=== PATIENT | female | born 1950 | race Caucasian/White ===

== ENCOUNTER → 2016-10-04 | Outpatient (CLI) | payer MEDICARE ==
--- NOTE | 2016-10-04 12:42 | BD ---
EXAMINATION TYPE: MG DEXA axial skeleton. DATE OF EXAM: 10/04/2016 8:15 AM COMPARISON: YES CLINICAL HISTORY: POST MENOPAUSAL Height: 5'4 Weight: 191 FRAX RISK QUESTIONS: Alcohol (3 or more units per day): no Family History (Parent hip fracture): yes Glucocorticoids (More than 3mos): no (Ex: prednisone, prednisolone, methylprednisolone, dexamethasone, and hydrocortisone). History of Fracture in Adulthood: no Secondary Osteoporosis: 1. Type 1 Diabetes: no 2. Hyperthyroidism: no 3. Menopause before 45: no 4. Malnutrition: no 5. Chronic liver disease: no Rheumatoid Arthritis: no Current Tobacco Use: no RISK FACTORS HISTORY OF: Diet low in dairy products/other sources of calcium: Postmenopausal woman: Yes MEDICATIONS: Additional Medications: cholesterol, blood pressure, Additional History: post menopausal EXAM MEASUREMENTS: Bone mineral densitometry was performed using the Xdynia System. Bone mineral density as measured about the Lumbar spine is: ----- L1-L4(G/cm2): 1.690 T Score Values are as follows: ----- L2: 3.3 ----- L3: 4.3 ----- L4: 7.0 ----- L1-L4: 4.3 Bone mineral density has: Increased 16.7% since study of: 11/28/2006 Bone mineral density about the R hip (g/cm2): 1.109 Bone mineral density about the L hip (g/cm2): 1.025 T Score values are as follows: -----R Neck: 0.5 -----L Neck: -0.1 -----R Intertrochanter: 0.7 -----L Intertrochanter: 0.7 Bone mineral density has: Decreased -2.4% since study of: 11/28/2006 IMPRESSION: Normal (Values between +1 and -1 indicate normal bone mass) NOTE: T-SCORE=SD OF THE YOUNG ADULT MEAN.
--- NOTE | 2016-10-05 11:50 | MM ---
Reason for exam: screening (asymptomatic). Last mammogram was performed 1 year and 4 months ago. History: Patient is postmenopausal. Family history of breast cancer in 2 aunts and breast cancer in mother. Reductions of both breasts, 1992. Benign core biopsy of the left breast. Took hormonal contraceptives for 6 years beginning at age 21. Physical Findings: A clinical breast exam by your physician is recommended on an annual basis and results should be correlated with mammographic findings. MG 3D Screening Mammo W/Cad Bilateral CC and MLO view(s) were taken. Prior study comparison: May 20, 2015, bilateral MG screening mammo w CAD. January 24, 2014, bilateral digital screening mammo w/CAD. The breast tissue is heterogeneously dense. This may lower the sensitivity of mammography. Benign calcifications. There is chronic nodularity in the left breast. No significant changes when compared with prior studies. ASSESSMENT: Benign, BI-RAD 2 RECOMMENDATION: Routine screening mammogram of both breasts in 1 year.
== END | disposition home or self-care (01) ==
LOC: RADMAMWWP 07:31
PROVIDERS: ATTEND Internal Medicine
DX: Z12.31 Encounter for screening mammogram for malignant neoplasm of breast (principal); N95.1 Menopausal and female climacteric states
CPT/HCPCS: 77080; 77063; G0202

== ENCOUNTER → 2018-01-24 | Outpatient (CLI) | payer MEDICARE ==
--- NOTE | 2018-01-25 10:28 | MM ---
Reason for exam: screening (asymptomatic). Last mammogram was performed 1 year and 4 months ago. History: Patient is postmenopausal. Family history of breast cancer in 2 aunts and breast cancer in mother. Reductions of both breasts, 1993. Benign core biopsy of the left breast. Took hormonal contraceptives for 6 years beginning at age 21. MG 3D Screening Mammo W/Cad Bilateral CC, MLO, and XCCL view(s) were taken. Prior study comparison: October 04, 2016, bilateral MG 3d screening mammo w/cad. May 20, 2015, bilateral MG screening mammo w CAD. The breast tissue is heterogeneously dense. This may lower the sensitivity of mammography. There is a 3mm mass in the upper inner quadrant of the right breast at middle depth possibly present on recent exams but with increasing calcifications. There is a group of calcifications at far posterior depth in the lateral right breast on XCCL view only. No suspicious abnormality in the left breast. ASSESSMENT: Incomplete: need additional imaging evaluation, BI-RAD 0 RECOMMENDATION: Special view mammogram of the right breast. If lesion persists on supplemental views, image directed ultrasound is recommended. [facility] will attempt to contact patient to return for supplemental views and ultrasound if indicated.
== END ==
LOC: RADMAMWWP 12:40
PROVIDERS: ATTEND Internal Medicine
DX: Z12.31 Encounter for screening mammogram for malignant neoplasm of breast (principal)
CPT/HCPCS: 77063; 77067

== ENCOUNTER → 2018-01-26 | Outpatient (CLI) | payer MEDICARE ==
--- NOTE | 2018-01-26 12:11 | MM ---
Reason for exam: additional evaluation requested from abnormal screening. Last mammogram was performed less than 1 month ago. History: Patient is postmenopausal. Family history of breast cancer in 2 aunts and breast cancer in mother. Reductions of both breasts, 1993. Benign core biopsy of the left breast. Took hormonal contraceptives for 6 years beginning at age 21. Physical Findings: Nurse did not find any significant physical abnormalities on exam. MG 3D Work Up W/Cad RT CC and MLO view(s) were taken of the right breast. Prior study comparison: January 24, 2018, bilateral MG 3d screening mammo w/cad. October 04, 2016, bilateral MG 3d screening mammo w/cad. Finding: There are typically benign round calcifications in the right breast. There is a chronic nodularity in the right breast. There is no discrete abnormality. These results were verbally communicated with the patient and result sheet given to the patient on 01/26/18. ASSESSMENT: Benign, BI-RAD 2 RECOMMENDATION: Return to routine screening mammogram schedule for both breasts.
== END | disposition home or self-care (01) ==
LOC: RADMAMWWP 11:01
PROVIDERS: ATTEND Internal Medicine
DX: R92.8 Other abnormal and inconclusive findings on diagnostic imaging of breast (principal)
CPT/HCPCS: 77065; G0279

== ENCOUNTER → 2018-07-30 | Outpatient (CLI) | payer MEDICARE ==
--- NOTE | 2018-07-30 15:11 | XR ---
EXAMINATION TYPE: XR chest 2V DATE OF EXAM: 07/30/2018 COMPARISON: NONE HISTORY: Cough TECHNIQUE: Frontal and lateral views of the chest are obtained. FINDINGS: There is no focal air space opacity, pleural effusion, or pneumothorax seen. The cardiac silhouette size is within normal limits. Suspect some bronchial wall thickening. Suspect a spinal cur vature, patient is rotated. There is eventration of the hemidiaphragms. The osseous structures are in tact. IMPRESSION: Correlate for bronchitis, reactive airways disease, follow-up as indicated
== END | disposition home or self-care (01) ==
LOC: RADXRMAIN 12:13
PROVIDERS: ATTEND Internal Medicine
DX: R05 Cough (principal)
CPT/HCPCS: 71046

== ENCOUNTER → 2019-02-01 | Outpatient (CLI) | payer MEDICARE ==
--- NOTE | 2019-02-04 08:25 | MM ---
Reason for exam: screening (asymptomatic). Last mammogram was performed 1 year ago. History: Patient is postmenopausal. Family history of breast cancer in 2 aunts and breast cancer in mother. Reductions of both breasts, 1993. Benign core biopsy of the left breast. Took hormonal contraceptives for 6 years beginning at age 21. Physical Findings: A clinical breast exam by your physician is recommended on an annual basis and results should be correlated with mammographic findings. MG 3D Screening Mammo W/Cad Bilateral CC and MLO view(s) were taken. Prior study comparison: January 26, 2018, right breast MG 3d work up w/cad RT. January 24, 2018, bilateral MG 3d screening mammo w/cad. The breast tissue is heterogeneously dense. This may lower the sensitivity of mammography. Finding #1: There is a new 12 mm indistinct oval mass in the lower inner quadrant, posterior middle position of the left breast. Finding #2: There are typically benign dystrophic, round, diffuse/scattered and grouped calcifications in both breasts. ASSESSMENT: Incomplete: need additional imaging evaluation, BI-RAD 0 RECOMMENDATION: Ultrasound of the left breast. [facility] will attempt to contact patient to return for ultrasound.
== END ==
LOC: RADMAMWWP 09:13
PROVIDERS: ATTEND Internal Medicine
DX: Z12.31 Encounter for screening mammogram for malignant neoplasm of breast (principal)
CPT/HCPCS: 77063; 77067

== ENCOUNTER → 2019-02-13 | Outpatient (CLI) | payer MEDICARE ==
--- NOTE | 2019-02-13 09:57 | USB ---
Reason for exam: additional evaluation requested from abnormal screening. History: Patient is postmenopausal. Family history of breast cancer in 2 aunts and breast cancer in mother. Reductions of both breasts, 1992. Benign core biopsy of the left breast. Took hormonal contraceptives for 6 years beginning at age 21. Physical Findings: Nurse did not find any significant physical abnormalities on exam. US Breast Workup Limited LT Left limited breast ultrasound including focal area of concern, retroareolar and axilla demonstrates a 1.0 x 0.9 x 0.7cm irregular, solid, hypoechoic lesion at 6 o'clock and a 0.5 x 0.6 x 0.2cm irregular, solid, hypoechoic lesion at 6 o'clock. Suspicious, biopsy recommended, correlate with post biopsy images to assess for concordance with new left focal asymmetry. These results were verbally communicated with the patient and result sheet given to the patient on 02/13/19. ASSESSMENT: Suspicious, BI-RAD 4 RECOMMENDATION: Ultrasound core biopsy of the left breast. (x 2) Called Dr. Castro with mammographic findings and has scheduled an appointment for the patient for 03/21/19 at 10:[address] Waite. Biopsy scheduled for 02/27/19 at 12:20. PRELIMINARY REPORT CALLED AND FAXED TO DR. WAITE ON 02/13/19.
== END | disposition home or self-care (01) ==
LOC: RADUSWWP 07:54
PROVIDERS: ATTEND Internal Medicine
DX: R92.8 Other abnormal and inconclusive findings on diagnostic imaging of breast (principal)

== ENCOUNTER → 2019-02-27 | Day surgery (SDC) | payer MEDICARE ==
[2019-02-27 11:46] VITALS: TEMP 98.4; BMI 30.9
[2019-02-27 13:34] VITALS: BP 142/80; PULSE 60
--- NOTE | 2019-02-27 14:30 | USB ---
EXAMINATION TYPE: US biopsy breast VAD LT DATE OF EXAM: 02/27/2019 CLINICAL HISTORY: R92.8 Abnormal Mammogram. TECHNIQUE: Ultrasound guided core biopsy of left breast. COMPARISON: Ultrasound left breast 02/13/2018 FINDINGS: The procedure of ultrasound guided core biopsy was explained to the patient. Benefits, alternatives, and risks were discussed. An informed consent was then obtained. The patient was placed in supine positioning for imaging and for the procedure. The overlying skin was prepped and draped in usual sterile fashion. Lidocaine was used as anesthetic into the skin and subcutaneous tissue up to area of concern in the left breast at the approximate 6:00 position. Under ultrasound guidance, a 12-gauge vacuum assisted biopsy gun device was used to obtain 5 core samples. Following this, a biopsy clip was left in lesion. Postprocedure mammogram was performed documenting the clip in place and correlating with the mammographic abnormality at the lower inner left breast The patient tolerated the procedure well without any immediate complication. The patient was kept in the radiology department for short stay after the procedure and then discharged home in stable condition. Additional abnormality within the left breast at the approximate 6:00 position is at the site of patient's surgical scar from breast reduction was felt likely to be benign. No biopsy performed at this lesion time. IMPRESSION: Successful, uncomplicated ultrasound guided core biopsy of area of concern in the left breast 6:00, full pathology results to follow. Additional smaller lesion at 6:00 left breast, no biopsy performed at this time. Short interval follow-up breast ultrasound recommended in 6 months. Pathology Results: Malignant LEFT BREAST, CORE BIOPSY: Invasive moderately differentiated ductal carcinoma. See Surgical Pathology Cancer Case Summary and Comment. Recommendation Surgical consult of the left breast. Biopsy is recommended for the second smaller mass also at 6 o'clock on the left. [facility]
--- NOTE | 2019-02-28 08:16 | MM ---
Reason for exam: additional evaluation requested from abnormal screening. Last mammogram was performed 1 month ago. History: Patient is postmenopausal. Family history of breast cancer in 2 aunts and breast cancer in mother. Reductions of both breasts, 1993. Benign core biopsy of the left breast. Took hormonal contraceptives for 6 years beginning at age 21. MG Diagnostic Mammo LT Wo CAD CC and LM view(s) were taken of the left breast. Prior study comparison: February 01, 2019, bilateral MG 3d screening mammo w/cad. January 26, 2018, right breast MG 3d work up w/cad RT. ASSESSMENT: Post procedure mammogram for marker placement RECOMMENDATION: Surgical consultation of the left breast. Biopsy is recommended for the second smaller mass also at 6 o'clock on the left.
== END | disposition home or self-care (01) ==
LOC: RADUSWWP 11:14
PROVIDERS: ATTEND Surgery
DX: C50.912 Malignant neoplasm of unspecified site of left female breast (principal); Z78.0 Asymptomatic menopausal state; Z80.3 Family history of malignant neoplasm of breast
CPT/HCPCS: 88305; 88342; 88341; 77065; 19083; A4648

== ENCOUNTER → 2019-03-13 | Outpatient (CLI) | payer MEDICARE ==
--- NOTE | 2019-03-14 08:41 | BMR ---
EXAMINATION TYPE: MR breast BILAT wo/w con DATE OF EXAM: 03/13/2019 COMPARISON: Prior 3-D bilateral breast mammogram February 01, 2019 BI-RADS 0. Left breast ultrasound January BI-RADS 4. HISTORY: Left breast cancer on recent biopsy February 27, 2019. History of bilateral breast reduction surg chris. Pathology is invasive moderately differentiated ductal carcinoma. CONTRAST: Multiplanar, multisequence images of the breasts were acquired utilizing 7.5 mL intravenous Gadavist gadolinium contrast. TECHNIQUE: A series of fat and water weighted images in the long and short axis views of both breasts are obtained in conjunction with dynamic contrast MRI with subtraction technique. Three-dimensional and additional postprocessing imaging is created on independent workstation and reviewed during offi cial interpretation of this study. FINDINGS: Heterogeneously dense fibroglandular tissue is redemonstrated throughout both breasts. Ther e are a few scattered simple-appearing thin-walled cysts identified bilaterally. Dynamic postcontrast images show moderate glanular enhancement with asymmetric left-sided subareolar increased glanular e nhancement versus opposite right side. Some areas of slight nodular enhancement are present bilateral ly. No suspicious fat-containing masses are present bilaterally. Dynamic postcontrast images show no suspicious intramammary adenopathy. With regard to the right breast there is no suspicious skin thickening. No suspicious masses or patho logic enhancement is seen. Benign-appearing right axillary lymph nodes are noted. Chest wall is intac t. With regard to the left breast there is significant blooming artifact from biopsy clip in the lower i nner quadrant middle depth. At this level there is some residual curvilinear enhancement along the an terior and deeper central aspect of the clip measuring roughly 9 x 2 mm with rapid uptake and washout . Remainder of left breast shows no additional areas of suspicious enhancement without second site to correspond to the small area of concern on recent ultrasound labeled 6:00 position BC zone. Normal-a ppearing left axillary lymph nodes are seen. The chest wall is intact. Small hiatal hernia is incidentally noted. IMPRESSION: Some residual curvilinear enhancement at site of biopsy-proven carcinoma left breast. No MRI evidence for additional malignancy in the left or right breast. BI-RADS 2 benign findings right breast. BI-RADS 6 biopsy-proven carcinoma left breast. Recommendation: Despite negative MRI would advise ultrasound guided sampling of second smaller area o f concern left breast prior to possible surgical excision of the biopsy-proven carcinoma.
== END | disposition home or self-care (01) ==
LOC: RADMRIMAIN 20:22
PROVIDERS: ATTEND Surgery
DX: C50.912 Malignant neoplasm of unspecified site of left female breast (principal)
CPT/HCPCS: C8937; C8908; A9585; 77049

== ENCOUNTER → 2019-04-08 | Day surgery (SDC) | payer MEDICARE ==
[2019-04-08 07:21] VITALS: RESP 12
[2019-04-08 08:44] VITALS: BP 143/90; PULSE 57; TEMP 98.1
--- NOTE | 2019-04-08 13:00 | USB ---
EXAMINATION TYPE: US biopsy breast VAD LT, Postbiopsy MG diagnostic mammo LT wo CAD DATE OF EXAM: 04/08/2019 CLINICAL HISTORY: 68 year-old female with biopsy-proven C50.912 Breast Ca, Z85.3 history of cancer. Second suspicious area in the same breast for which the patient is referred for biopsy. TECHNIQUE: Ultrasound guided core biopsy of the left breast. COMPARISON: MRI 03/13/2019 and 02/13/2019 FINDINGS: The procedure of ultrasound guided core biopsy was explained to the patient. Benefits, alternatives, and risks were discussed. An informed consent was then obtained. The 5 mm irregular area at the 6:00 position, zone B/C was identified and targeted for biopsy. The patient was placed in supine positioning for imaging and for the procedure. The overlying skin was prepped and draped in usual sterile fashion. Lidocaine was used as anesthetic into the skin and subcutaneous tissue up to area of concern in the 6:00 left breast. Under ultrasound guidance, a 13-gauge vacuum-assisted mammotome Elite biopsy gun was used to obtain 3 core samples. Following this, a wing clip was left in lesion. The patient tolerated the procedure well without any immediate complication. The patient was kept in the radiology department for short stay after the procedure and then discharged home in stable condition. Postbiopsy mammogram shows wing clip deposited in the lower inner quadrant in relative proximity to the coil clip which corresponds to the site of biopsy- proven carcinoma. IMPRESSION: Successful, uncomplicated ultrasound guided core biopsy of a second area of concern in the 6:00 zone B/C position of the left breast. Biopsy proven left breast cancer at 6:00 zone A. Both clips located mammographically in the lower inner quadrant. Full pathology results to follow. 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 See Surgical Pathology Cancer Case Summary. Recommendation Surgical consult of the left breast. [facility]
== END ==
LOC: RADUSWWP 06:59
PROVIDERS: ATTEND Surgery
DX: Z85.3 Personal history of malignant neoplasm of breast (principal); C50.912 Malignant neoplasm of unspecified site of left female breast
CPT/HCPCS: 88305; 77065; 19083; A4648; J2001

== ENCOUNTER → 2019-05-23 | Day surgery (SDC) | payer MEDICARE ==
[2019-05-17 10:19] VITALS: BMI 30.9
[~2019-05-23] MED LIST: ALPRAZolam 0.25 MG TAB PO ONE; BUPIVACAIN-EPI 0.25%-1:200,000 30 ML VIAL SQ ONE; DEXAMETHASONE SOD PHOSPHATE 10 MG/ML 1 ML VIAL IV ONE; GLYCOPYRROLATE 0.2 MG/ML 2 ML VIAL ONE; HEPARIN SODIUM,PORCINE 5,000 UNIT/ML 1 ML VIAL SQ ONE; HYDROcodone/APAP 5-325MG 1 EACH TAB PO ONE; HYDROcodone/APAP 5-325MG 1 EACH TAB PO PRN; HYDROmorphone 0.5 MG/0.5 ML SYRINGE IVP PRN; LACTATED RINGERS 1,000 ML IV SCH; LIDOCAINE 1% 20 ML VIAL (10MG/ML) FOR IV START SQ ONE; LIDOCAINE 1% INJ 10MG/ML (20 ML MDV) ONE; LIDOCAINE 1% INJ 10MG/ML (20 ML MDV) SQ ONE; METHYLENE BLUE 50 MG/10 ML AMPUL INJ ONE; METHYLENE BLUE 50 MG/10 ML AMPUL MISCELLANE ONE; MIDAZOLAM 2 MG/2 ML VIAL IV PRN; MIDAZOLAM 2 MG/2 ML VIAL ONE; NALOXONE 0.4 MG/ML 1 ML VIAL IV PRN; ONDANSETRON 4 MG/2 ML VIAL IVP ONE; PROPOFOL 10 MG/ML 20 ML VIAL IV ONE; Pre Op ABX Message 1 EACH MISC MISCELLANE ONE; SUCCINYLCHOLINE CHLORIDE 100 MG/5 ML SYR IV ONE; ePHEDrine SULFATE/0.9% NACL/PF 50 MG/5 ML SYRINGE IV ONE; fentaNYL (PF) 50 MCG/ML 2 ML AMP ONE
--- NOTE | 2019-05-23 10:08 | P.GSHP ---
History of Present Illness H&P Date: 05/23/19 Chief Complaint: Left breast cancer 68-year-old female seen in early March. Patient had mammogram in January showing a 12 mm mass posterior left breast. Ultrasound showed 2 separate lesions around 6:00 location. Biopsy of the larger lesion revealed grade 2 invasive ductal cancer. ER/TX positive HER-2/naomy negative. Family history of breast cancer in her mother and 2 aunts. History of previous bilateral breast reduction 1992. Patient without symptoms. After initial evaluation was scheduled for breast MRI and also genetic testing. Breast MRI showed no additional suspicious abnormalities however biopsy of the second lesion seen on ultrasound was advised. Patient underwent biopsy left breast second lesion and this also showed invasive ductal cancer identical to the previously biopsied patient's case was presented at tumor board. Her genetic testing was negative. Her films were reviewed with radiology and it was felt that the 2 areas of biopsy proven malignancy were less than 2 cm from one another. Breast conservation remain an option for that reason. She and I discussed mastectomy with or without reconstruction as well as uncle plastic surgery on the contralateral and ipsilateral side as options. She remained interested in lumpectomy sentinel lymph node biopsy left breast. Past Medical History Past Medical History: Asthma, Cancer, Hyperlipidemia, Hypertension Additional Past Medical History / Comment(s): STATES LIGHT ASTHMA (NO RX), GOUT, NEW DIAGNOSIS BREAST CANCER. History of Any Multi-Drug Resistant Organisms: None Reported Past Surgical History: Breast Surgery Additional Past Surgical History / Comment(s): bilat breast reduction. Ovarian cyst removal, Breast Bx. Past Anesthesia/Blood Transfusion Reactions: Motion Sickness, Postoperative Nausea & Vomiting (PONV) Past Psychological History: No Psychological Hx Reported Smoking Status: Former smoker Past Alcohol Use History: Rare Additional Past Alcohol Use History / Comment(s): QUIT SMOKING AGE 31 (1980), STARTED SMOKING AGE 22 . SMOKED < 1 PPD Past Drug Use History: None Reported - Past Family History Mother Family Medical History: Cancer Additional Family Medical History / Comment(s): pt's mother was dx with breast cancer twice (first time at age 60, second at age 80) at age 95 from stroke complications. Pt has 2 maternal aunts that were also dx with breast cancer. States cousins with breast cancer-4? Medications and Allergies Home Medications Medication Instructions Recorded Confirmed Type Aspirin [Adult Low Dose Aspirin EC] 81 mg PO HS 02/18/19 05/17/19 History Cholecalciferol (Vitamin D3) 2,000 unit PO HS 02/18/19 05/17/19 History [Vitamin D3] Ezetimibe [Zetia] 10 mg PO HS 02/18/19 05/17/19 History Pravastatin Sodium [Pravachol] 10 mg PO HS 05/17/19 05/17/19 History amLODIPine BESYLATE [Norvasc] 5 mg PO HS 05/17/19 05/17/19 History Allergies Allergy/AdvReac Type Severity Reaction Status Date / Time MUSCLE RELAXANT AdvReac Unknown RASH ON Uncoded 05/17/19 10:04 FACE- UNKNOWN DRUG NAME Surgical - Exam Physical exam: General: Well-developed, well-nourished HEENT: Normocephalic, sclerae nonicteric Left breast: No masses, no adenopathy, previous scars noted Right breast: No masses, no adenopathy, previous scars noted Abdomen: Nontender, nondistended Extremities: No edema Neuro: Alert and oriented Assessment and Plan (1) Breast cancer, left breast Narrative/Plan: 68-year-old female with left breast cancer. 2 separate biopsy proven suspicious areas at 6:00. Again options of mastectomy with or without reconstruction and lumpectomy with anticipated adjuvant radiation therapy reviewed. She remains interested in breast conservation. Will proceed today with left breast gavi mpectomy with sentinel lymph node biopsy and injection with wire localization. Risks of bleeding, infection, nerve injury, possible need for additional surgery, seroma, numbness, scarring, lymphedema, recurrence reviewed. She understands and wished to proceed. Status: Acute Code(s): C50.912 - MALIGNANT NEOPLASM OF UNSPECIFIED SITE OF LEFT FEMALE BREAST SNOMED Code(s): 089723171
--- NOTE | 2019-05-23 16:06 | NM ---
EXAMINATION TYPE: NM sentinel node injection DATE OF EXAM: 05/23/2019 COMPARISON: NONE INDICATION: Abnormal mammogram. Informed consent was obtained. A timeout was performed. The area around the left nipple was cleansed with alcohol. A total of 490 microcuries of lymphocele w as injected. The patient tolerated the procedure very well. IMPRESSIONS: 1.. Successful injection for sentinel node evaluation.
[2019-05-23 16:09] VITALS: TEMP 97.7
--- NOTE | 2019-05-23 16:33 | P.OP ---
Date of Procedure: 05/23/19 Procedure(s) Performed: REOPERATIVE DIAGNOSIS: Left breast cancer POSTOPERATIVE DIAGNOSIS: Same PROCEDURE: Left Breast wire localization lumpectomy with sentinel lymph node biopsy SURGEON: Ravindra EBL: Minimal ANESTHESIA: General COMPLICATIONS: None OPERATIVE PROCEDURE: Patient was placed on the operating room table in the supine position. 2 mL of methylene blue was injected into the subareolar space. The breast was then massaged for 5 minutes. The breast was prepped and draped in usual sterile fashion. The left axilla was addressed at that time. The hot spot in the left axilla was identified. A small curvilinear incision was made using the scalpel. Dissection down through the subcutaneous tissues took place using electrocautery. Using the neoprobe I identified a total of 2 sentinel lymph nodes. One of these was blue in color. These both had a normal appearance and did not appear suspicious clinically for metastasis. These were sent in formalin to pathology. The subcutaneous tissues were closed using 3-0 Vicryl sutures. The skin was closed using 4-0 Monocryl sutures. The patient had 2 wires entering the left breast. One wire was entering the left breast at 7:00 and 1 was entering the breast at 8:00. Both were directed laterally and posteriorly. The patient had a previous breast reduction surgery and the infra- areolar vertical scar was utilized for our lumpectomy. The subcutaneous tissues were carefully dissected laterally. The wires were brought out of the incision site. A lumpectomy then took place encompassing the breast tissue around both wires as one specimen. Was a fairly sizable lumpectomy. Margins of 1.5-2 cm worth attempted to be achieved. The specimen was then painted the appropriate 6 colors. Clips were used to identify the lumpectomy cavity. The clips were confirmed to be within the lumpectomy specimen by radiology. The subcutaneous tissues were closed using 3-0 Vicryl sutures. The skin was closed using a running 4-0 Monocryl stitch. Skin glue and sterile dressings were then applied. DISPOSITION: Stable to recovery room
[2019-05-23 16:49] VITALS: RESP 16
[2019-05-23 17:58] VITALS: BP 129/80; PULSE 73
--- NOTE | 2019-05-24 18:03 | MM ---
EXAMINATION TYPE: MG pre op needle loc LT DATE OF EXAM: 05/23/2019 COMPARISON: 04/08/2019 mammogram CLINICAL HISTORY: BI-RADS 6 biopsy 2 locations TECHNIQUE: Needle localization with wire placement and surgical excision of area of concern in the left breast; 2 wires, 2 separate locations FINDINGS: The procedure of needle localization with wire placement and than surgical excision was explained to the patient. Benefits, alternatives, and risks were discussed. An informed consent was then obtained. Timeout was performed Due to patient positioning medial to lateral pathway was utilized. The overlying skin was prepped and draped in usual sterile fashion. Lidocaine was used as anesthetic into the skin and subcutaneous tissue up to the level of area of concern. A 5 cm needle was used towards the inferior medial left. A 7 cm needle was utilized for the more superior midline clip. It was placed via a medial approach under mammographic guidance. Subsequent 90 degrees mammogram show the needle to be in satisfactory position relative to the targeted area. At this point, wires were placed and the needles were withdrawn. The wire was fixed to patient's skin. Images were marked for surgeon. Powersite node injection was then performed. Subtle was reported separately. The patient tolerated the procedure well without any immediate complication. The patient was taken to surgery for surgical excision. Specimen: Single mammographic specimen obtained both wires are within the specimen. The localized clips are within the specimen. The region between the clips appears to include the targeted regions. IMPRESSION: 1. Successful wire localization of 2 separate biopsy proven neoplasm locations. Recommendations: 1. Recommendations are pending pathology results. Pathology Results: Malignant A. LEFT SENTINEL LYMPH NODE #1, BIOPSY: Lymph node positive for metastatic adenocarcinoma. Appropriately controlled immunohistochemical studies for cytokeratin 7 and JAKOB are performed to exclude the possibility of occult metastases or idiosyncratic non-reactivity with one of the markers. The stains confirm the presence of metastatic adenocarcinoma within lymph node parenchyma. B. LEFT SENTINEL LYMPH NODE #2, BIOPSY: Lymph node positive for metastatic adenocarcinoma. Appropriately controlled immunohistochemical studies for cytokeratin 7 and JAKOB are performed to exclude the possibility of occult metastases or idiosyncratic non-reactivity with one of the markers. The stains confirm the presence of metastatic adenocarcinoma within lymph node parenchyma. C. 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 Inked margin of resection - negative for involvement by adenocarcinoma. See Surgical Pathology Cancer Case Summary. Recommendation Surgical consult of the left breast. Continued surgical management. MTDD
== END | disposition home or self-care (01) ==
LOC: OR 10:29
PROVIDERS: ATTEND Surgery
DX: C50.912 Malignant neoplasm of unspecified site of left female breast (principal); C77.3 Secondary and unspecified malignant neoplasm of axilla and upper limb lymph nodes; Z17.0 Estrogen receptor positive status [ER+]; I10 Essential (primary) hypertension; Z79.82 Long term (current) use of aspirin; Z79.899 Other long term (current) drug therapy; Z87.891 Personal history of nicotine dependence; Z80.3 Family history of malignant neoplasm of breast; Z82.3 Family history of stroke; Z88.8 Allergy status to other drugs, medicaments and biological substances
CPT/HCPCS: 88342; 88307; 88341; 76098; 19281; 19282; 38792; 19301; 38500; A9520; J2250; J1644; J1100; J2405; J2001; J3010; J0330; J2704; Q9968

== ENCOUNTER → 2019-06-10 | Outpatient (CLI) | payer MEDICARE ==
--- NOTE | 2019-06-10 12:54 | CT ---
EXAMINATION TYPE: CT ChestAbdPelvis w con DATE OF EXAM: 06/10/2019 COMPARISON: None HISTORY: Breast CA CT DLP: 1484.9 mGycm CONTRAST: CT scan of the chest, abdomen and pelvis is performed with Oral Contrast and with IV Contrast, patien t injected with 100 mL of Isovue 300. CT Chest: LUNGS: The lungs are clear and free of infiltrate or atelectasis. No pulmonary nodule or mass is det ected. No pleural effusion or CT evidence of interstitial lung disease. MEDIASTINUM: Thoracic aorta is of normal caliber. The heart is not enlarged. No evidence for media stinal mass or adenopathy. HILAR STRUCTURES: No evidence for mass. No hilar adenopathy is appreciated. OTHER: Postoperative changes left breast with underlying seroma identified down measuring 7.9 x 3[address] ABDOMEN AND PELVIS FINDINGS: LIVER/GB: There is hepatic steatosis noted. No calcified gallstones. No space occupying hepatic les ion. Biliary tree is of normal caliber. PANCREAS: No inflammation. No distinct mass. SPLEEN: No splenic enlargement. No lesion seen. ADRENALS: No nodule. No thickening. KIDNEYS/BLADDER: No hydronephrosis. No nephrolithiasis. No distinct solid renal mass. Simple cyst lower pole right kidney measuring 6.1 cm. BOWEL: Normal appendix. Normal bowel caliber. No inflammation. GENITAL ORGANS: No gross abnormality. LYMPH NODES: No greater than 1cm abdominal or pelvic lymph nodes are appreciated. AORTA: No significant abnormality. OSSEOUS STRUCTURES: No significant abnormality is seen. OTHER: No significant additional abnormality is seen. IMPRESSION: 1. No evidence for metastatic disease. 2. Mild hepatic steatosis noted. 3. Postoperative changes of left breast.
--- NOTE | 2019-06-10 14:23 | NM ---
EXAMINATION TYPE: NM bone scan whole body DATE OF EXAM: 06/10/2019 COMPARISON: NONE HISTORY: C50.312 Breast ca Delayed whole-body scanning was performed following the injection of 23.9 mCi Tc 99m MDP. Images acq uired 3.5 hours post injection. FINDINGS: No intense uptake to suggest metastatic disease. There is a mild to moderate uptake seen at L4-5 and L5-S1 compatible with degenerative uptake. Degenerative uptake is also seen about the shoulders, ster noclavicular joints, bilateral knees and ankles. IMPRESSION: No intense uptake to suggest metastatic disease.
== END | disposition home or self-care (01) ==
LOC: RADNMMAIN 09:40
PROVIDERS: ATTEND Internal Medicine Hematology & Oncology
DX: C50.312 Malignant neoplasm of lower-inner quadrant of left female breast (principal); K76.0 Fatty (change of) liver, not elsewhere classified; Z98.890 Other specified postprocedural states
CPT/HCPCS: 82565; 84520; 71260; 74177; 36415; 78306; A9503; Q9967

== ENCOUNTER → 2019-11-27 | Outpatient (CLI) | payer MEDICARE ==
--- NOTE | 2019-11-27 11:54 | XR ---
EXAMINATION TYPE: XR shoulder complete LT DATE OF EXAM: 11/27/2019 COMPARISON: NONE HISTORY: Pain TECHNIQUE: Shoulder examined in 3 views FINDINGS: The humeral head articulates with the glenoid. The acromio-clavicular junction is normal. No acute fractures or dislocations are evident. Surgical clips are in the left axilla or axillary tail breast. A follow up study can be performed 7-10 days from acute trauma for continued pain. IMPRESSION: 1. Normal three-view left Shoulder
--- NOTE | 2019-11-27 12:00 | XR ---
EXAMINATION TYPE: XR humerus LT DATE OF EXAM: 11/27/2019 COMPARISON: None HISTORY: Pain malignant neoplasm of left breast left arm and shoulder pain TECHNIQUE: 2 view left humerus FINDINGS: Humeral head articulates with the glenoid. The elbow joint space appears preserved. No acut e fractures or dislocations are evident. No suspicious lytic or sclerotic lesions are identified. IMPRESSION: 1. Normal 2 view left humerus
== END | disposition home or self-care (01) ==
LOC: RADXRMAIN 11:08
PROVIDERS: ATTEND Radiology Radiation Oncology
DX: C77.9 Secondary and unspecified malignant neoplasm of lymph node, unspecified (principal); C50.312 Malignant neoplasm of lower-inner quadrant of left female breast

== ENCOUNTER → 2020-04-15 | Outpatient (CLI) | payer MEDICARE ==
--- NOTE | 2020-04-16 09:51 | BD ---
EXAMINATION TYPE: Axial Bone Density DATE OF EXAM: 04/15/2020 COMPARISON: 10/04/2016 CLINICAL HISTORY: Breast cancer, postmenopausal Height: 63.5 IN Weight: 191 LBS FRAX RISK QUESTIONS: Family History (Parent hip fracture): YES MOTHER RISK FACTORS HISTORY OF: Active: YES Diet low in dairy products/other sources of calcium: YES Postmenopausal woman: AGE 55 MEDICATIONS: Additional Medications: CALCIUM, VIT D, COLLAGEN,CHOLESTEROL MEDS, BLOOD PRESSURE MEDS, ASPIRIN, ARIM IDEX, Additional History: BREAST CANCER WITH RADIATION AND CHEMO EXAM MEASUREMENTS: Bone mineral densitometry was performed using the [employer] System. Bone mineral density as measured about the Lumbar spine is: ----- L1-L4(G/cm2): 1.562 T Score Values are as follows: ----- L2: 1.4 ----- L3: 3.8 ----- L4: 5.3 ----- L1-L4: 3.2 Bone mineral density has: Decreased -8.2% since study of: 10/04/2016 Bone mineral density about the R hip (g/cm2): 1.037 Bone mineral density about the L hip (g/cm2): 0.972 T Score values are as follows: -----R Neck: 0.0 -----L Neck: -0.5 -----R Total: 1.0 -----L Total: 0.8 Bone mineral density has: Decreased -4.2% since study of: 10/04/2016 IMPRESSION: Normal (Values between +1 and -1 indicate normal bone mass). Consider repeating this study in 5 year s or sooner if there is some new clinical indication. NOTE: T-SCORE=SD OF THE YOUNG ADULT MEAN.
== END | disposition home or self-care (01) ==
LOC: RADBDWWP 15:34
PROVIDERS: ATTEND Internal Medicine Hematology & Oncology
DX: N95.1 Menopausal and female climacteric states (principal); C50.312 Malignant neoplasm of lower-inner quadrant of left female breast; Z79.890 Hormone replacement therapy
CPT/HCPCS: 77080

== ENCOUNTER → 2021-02-03 | Outpatient (CLI) | payer MEDICARE ==
[2021-02-05 09:17] VITALS: BMI 33.1
== END ==
LOC: DBWHC3 14:45
PROVIDERS: ATTEND Internal Medicine Cardiovascular Disease
DX: E66.01 Morbid (severe) obesity due to excess calories (principal); Z87.891 Personal history of nicotine dependence
CPT/HCPCS: 97802

== ENCOUNTER → 2021-04-26 | Outpatient (CLI) | payer MEDICARE ==
--- NOTE | 2021-04-30 11:31 | MM ---
Reason for exam: additional evaluation requested from prior study. Last mammogram was performed 1 year ago. History: Patient is postmenopausal and has history of breast cancer at age 68. Family history of breast cancer in maternal aunt, breast cancer in mother, and breast cancer in aunt. Malignant MG pre op loc each addl LT of the left breast, May 23, 2019. Malignant MG pre op needle loc LT of the left breast, May 23, 2019. Lumpectomy of the left breast, May 23, 2019. Malignant US biopsy breast VAD LT of the left breast, April 08, 2019. Malignant US biopsy breast VAD LT of the left breast, February 27, 2019. Reductions of both breasts, 1993. Benign core biopsy of the left breast. Took hormonal contraceptives for 6 years beginning at age 21. Physical Findings: Nurse did not find any significant physical abnormalities on exam. MG 3D Diag Mammo W/Cad KWASI Bilateral CC and MLO view(s) were taken. Prior study comparison: April 24, 2020, bilateral MG 3d diag mammo w/cad KWASI. April 08, 2019, left breast MG diagnostic mammo LT wo CAD. March 13, 2019, bilateral MR breast bilat wo/w con. January 24, 2018, bilateral MG 3d screening mammo w/cad. There are scattered fibroglandular densities. Post surgical and post therapy changes left breast. Increasing heterogeneous calcifications at the surgical site likely early fat necrosis, 6 month follow up recommended. Isodense to low density asymmetry left 12 o'clock better seen on prior 2019 exam. This can also be reassessed at follow up. These results were verbally communicated with the patient and result sheet given to the patient on 04/26/21. ASSESSMENT: Probably benign, BI-RAD 3 RECOMMENDATION: Follow-up diagnostic mammogram of the left breast in 6 months.
== END | disposition home or self-care (01) ==
LOC: RADMAMWWP 13:44
PROVIDERS: ATTEND Radiology Radiation Oncology
DX: R92.8 Other abnormal and inconclusive findings on diagnostic imaging of breast (principal); Z85.3 Personal history of malignant neoplasm of breast; Z78.0 Asymptomatic menopausal state; Z80.3 Family history of malignant neoplasm of breast
CPT/HCPCS: 77066; G0279; 77062

== ENCOUNTER 2022-03-15 09:19 | Day surgery (SDC) | payer MEDICARE ==
[2022-03-14 11:03] VITALS: BMI 31.7
[~2022-03-15 09:19] MED LIST changes: -ALPRAZolam 0.25 MG TAB PO ONE; -BUPIVACAIN-EPI 0.25%-1:200,000 30 ML VIAL SQ ONE; -DEXAMETHASONE SOD PHOSPHATE 10 MG/ML 1 ML VIAL IV ONE; -GLYCOPYRROLATE 0.2 MG/ML 2 ML VIAL ONE; -HEPARIN SODIUM,PORCINE 5,000 UNIT/ML 1 ML VIAL SQ ONE; -HYDROcodone/APAP 5-325MG 1 EACH TAB PO ONE; -HYDROcodone/APAP 5-325MG 1 EACH TAB PO PRN; -HYDROmorphone 0.5 MG/0.5 ML SYRINGE IVP PRN; +LIDOCAINE 1% (10MG/ML) FOR IV START INTRADERMA PRN; -LIDOCAINE 1% 20 ML VIAL (10MG/ML) FOR IV START SQ ONE; -LIDOCAINE 1% INJ 10MG/ML (20 ML MDV) ONE; -LIDOCAINE 1% INJ 10MG/ML (20 ML MDV) SQ ONE; -METHYLENE BLUE 50 MG/10 ML AMPUL INJ ONE; -METHYLENE BLUE 50 MG/10 ML AMPUL MISCELLANE ONE; -MIDAZOLAM 2 MG/2 ML VIAL IV PRN; -MIDAZOLAM 2 MG/2 ML VIAL ONE; -NALOXONE 0.4 MG/ML 1 ML VIAL IV PRN; -ONDANSETRON 4 MG/2 ML VIAL IVP ONE; -PROPOFOL 10 MG/ML 20 ML VIAL IV ONE; -Pre Op ABX Message 1 EACH MISC MISCELLANE ONE; -SUCCINYLCHOLINE CHLORIDE 100 MG/5 ML SYR IV ONE; -ePHEDrine SULFATE/0.9% NACL/PF 50 MG/5 ML SYRINGE IV ONE; -fentaNYL (PF) 50 MCG/ML 2 ML AMP ONE
[2022-03-15 10:02] VITALS: RESP 16; TEMP 97.7
[2022-03-15] MEDS ORDERED: ONDANSETRON 4 MG/2 ML VIAL ONE (10:06)
[2022-03-15] MEDS ORDERED: ONDANSETRON 4 MG/2 ML VIAL IVP ONE (10:13)
[2022-03-15] MEDS ORDERED: LIDOCAINE 2% INJ 20 MG/ML (2 ML VIAL) ONE (10:36)
[2022-03-15] MEDS ORDERED: PROPOFOL 10 MG/ML 20 ML VIAL IV ONE (10:36)
--- NOTE | 2022-03-15 10:45 | P.GSHP ---
History of Present Illness H&P Date: 03/15/22 Chief Complaint: colon cancer screening 71-year-old female here today for colonoscopy. Last colonoscopy 9 years ago. Patient has a family history of colon cancer in her sister. No bowel complaints. Past Medical History Past Medical History: Asthma, Cancer, Hyperlipidemia, Hypertension Additional Past Medical History / Comment(s): STATES LIGHT ASTHMA (NO RX), GOUT, LT BREAST CANCER. History of Any Multi-Drug Resistant Organisms: None Reported Past Surgical History: Breast Surgery Additional Past Surgical History / Comment(s): bilat breast reduction. Ovarian cyst removal, Breast Bx. LT BREAST LUMPECTOMY, COLONOSCOPY, Past Anesthesia/Blood Transfusion Reactions: Motion Sickness, Postoperative Nausea & Vomiting (PONV) Smoking Status: Former smoker - Past Family History Mother Family Medical History: Cancer Additional Family Medical History / Comment(s): pt's mother was dx with breast cancer twice (first time at age 60, second at age 80) at age 95 from stroke complications. Pt has 2 maternal aunts that were also dx with breast cancer. States cousins with breast cancer-4? Medications and Allergies Home Medications Medication Instructions Recorded Confirmed Type Aspirin [Adult Low Dose Aspirin EC] 81 mg PO HS 02/18/19 03/14/22 History Cholecalciferol (Vitamin D3) 2,000 unit PO HS 02/18/19 03/14/22 History [Vitamin D3] Ezetimibe [Zetia] 10 mg PO HS 02/18/19 03/14/22 History Pravastatin Sodium [Pravachol] 10 mg PO HS 05/17/19 03/14/22 History amLODIPine BESYLATE [Norvasc] 5 mg PO HS 05/17/19 03/14/22 History Anastrozole [Arimidex] 1 mg PO DAILY 03/14/22 03/15/22 History Allergies Allergy/AdvReac Type Severity Reaction Status Date / Time MUSCLE RELAXANT AdvReac Unknown RASH ON Uncoded 03/15/22 09:36 FACE- UNKNOWN DRUG NAME Surgical - Exam Vital Signs Temp Pulse Resp BP Pulse Ox 97.7 F 67 16 154/89 97 03/15/22 09:40 03/15/22 09:40 03/15/22 09:40 03/15/22 09:40 03/15/22 09:40 Physical exam: General: Well-developed, well-nourished HEENT: Normocephalic, sclerae nonicteric Abdomen: Nontender, nondistended Extremities: No edema Neuro: Alert and oriented Assessment and Plan (1) Colon cancer screening Narrative/Plan: Will proceed with colonoscopy at this time Current Visit: Yes Status: Acute Code(s): Z12.11 - ENCOUNTER FOR SCREENING FOR MALIGNANT NEOPLASM OF COLON SNOMED Code(s): 076260769
--- NOTE | 2022-03-15 11:07 | P.PCN ---
Date of Procedure: 03/15/22 Procedure(s) Performed: PREOPERATIVE DIAGNOSIS: Colon cancer screening POSTOPERATIVE DIAGNOSIS: Transverse colon polyp, descending colon polyp, diverticulosis PROCEDURE: Colonoscopy with snare polypectomy ANESTHESIA: MAC SURGEON: Bharat Waite M.D. SPECIMENS: Polyps ENDOSCOPIC PROCEDURE: The patient was placed on the endoscopy table in the left decubitus position. The Olympus colonoscope was inserted into the anus and passed under direct visualization to the base of the cecum. The appendiceal orifice was visualized. From that point the scope was slowly withdrawn inspecting all surfaces carefully. There were no neoplastic inflammatory or polypoid lesions throughout the cecum and ascending colon. In the transverse colon small polyp was seen and removed using the snare with cautery technique. The descending colon another polyp was seen and removed in a similar fashion. The remainder of the sigmoid and rectum was normal. There was mild left-sided diverticulosis. Digital rectal examination was normal. The patient was taken to the recovery room in stable condition per anesthesia guidelines. RECOMMENDATIONS: Await biopsy results. Repeat colonoscopy 5 years.
[2022-03-15 11:25] VITALS: BP 116/68; PULSE 72
== END 2022-03-15 11:49 | disposition home or self-care (01) ==
LOC: ORWHC2ENDO 09:19
PROVIDERS: ATTEND Surgery
DX: Z12.11 Encounter for screening for malignant neoplasm of colon (principal); D12.3 Benign neoplasm of transverse colon; D12.4 Benign neoplasm of descending colon; E78.5 Hyperlipidemia, unspecified; I10 Essential (primary) hypertension; J45.909 Unspecified asthma, uncomplicated; Z79.82 Long term (current) use of aspirin; Z80.0 Family history of malignant neoplasm of digestive organs; Z80.3 Family history of malignant neoplasm of breast; Z85.3 Personal history of malignant neoplasm of breast; Z87.891 Personal history of nicotine dependence
CPT/HCPCS: 45385; 88305; J2405; J2704; J2001

== ENCOUNTER → 2022-04-27 | Outpatient (CLI) | payer MEDICARE ==
--- NOTE | 2022-04-28 13:02 | MM ---
Reason for Exam: Hx of breast cancer, conservation therapy. Last screening mammogram was performed 12 month(s) ago. Patient History: Menarche at age 12. First Full-Term at age 19. Postmenopausal. Breast cancer, left, age 68. Previous chest radiation therapy at age 68. Previous chemotherapy at age 68. Hormonal Contraceptives for 6 years from age 21 until age 27. 1992, Bilateral Reduction. Benign Core Biopsy on the left side. 05/23/2019, Lumpectomy on the Left side. 05/23/2019, Malignant Core Biopsy on the left side. 05/23/2019, Malignant Core Biopsy on the left side. 04/08/2019, Malignant Core Biopsy on the left side. 02/27/2019, Malignant Core Biopsy on the left side. Maternal aunt had breast cancer, age 65. Maternal aunt had breast cancer, age 67. Mother had breast cancer, age 60. Mother had breast cancer, age 80. Sister had breast cancer, age 81. Prior Study Comparison: 08/16/1993 Screening Mammogram, Unknown. 09/16/2011 Bilateral Diagnostic Mammogram, [facility]. 01/15/2013 Bilateral Screening Mammogram, [facility]. 01/24/2014 Bilateral Screening Mammogram, [facility]. 01/26/2018 Right Diagnostic Mammogram, [facility]. 02/27/2019 Left Diagnostic Mammogram, [facility]. 04/08/2019 Left Diagnostic Mammogram, [facility]. 04/24/2020 Bilateral Diagnostic Mammogram, [facility]. 04/26/2021 Bilateral Diagnostic Mammogram, [facility]. Tissue Density: There are scattered fibroglandular densities. Findings: Analyzed By CAD. Postsurgical changes are within the left breast. Multiple benign appearing calcifications are within the left breast. A few scattered benign-appearing calcifications are within the right breast. Stable density is within the left breast. No significant interval change is evident. Overall Assessment: Benign, BI-RAD 2 Management: Diagnostic Mammogram of both breasts in 1 year. A clinical breast exam by your physician is recommended on an annual basis and results should be correlated with mammographic findings. This exam should not preclude additional follow-up of suspicious palpable abnormalities. Results were given to the patient verbally at the time of exam. Electronically signed and approved by: Waqar Li D.O. Radiologis
== END | disposition home or self-care (01) ==
LOC: RADMAMWWP 11:25
PROVIDERS: ATTEND Radiology Radiation Oncology
DX: R92.8 Other abnormal and inconclusive findings on diagnostic imaging of breast (principal); Z78.0 Asymptomatic menopausal state; Z80.3 Family history of malignant neoplasm of breast
CPT/HCPCS: 77066; G0279; 77062

== ENCOUNTER → 2022-05-27 | Outpatient (CLI) | payer MEDICARE ==
--- NOTE | 2022-05-27 12:12 | BD ---
EXAMINATION TYPE: Axial Bone Density DATE OF EXAM: 05/27/2022 COMPARISON: NONE CLINICAL HISTORY: 71 year old Female. ICD-10 CODE: Z79.890 POST MENOPAUSAL WITHOUT HRT Height: 64 Weight: 183.8 FRAX RISK QUESTIONS: Alcohol (3 or more units per day): no Family History (Parent hip fracture): no Glucocorticoids (More than 3mos): no (Ex: prednisone, prednisolone, methylprednisolone, dexamethasone, and hydrocortisone). History of Fracture in Adulthood: no Secondary Osteoporosis: 1. Type 1 Diabetes: no 2. Hyperthyroidism: no 3. Menopause before 45: no 4. Malnutrition: no 5. Chronic liver disease: no Rheumatoid Arthritis: no Current Tobacco Use: no RISK FACTORS HISTORY OF: Surgery to Spine/Hip(right/left)/Wrist (right/left): no Family History of Osteoporosis: no Active: yes Diet low in dairy products/other sources of calcium: yes Postmenopausal woman: no Lost more than 2 inches in height since high school: no MEDICATIONS: Additional History: EXAM MEASUREMENTS: Bone mineral densitometry was performed using the [employer] System. Bone mineral density as measured about the Lumbar spine is: ----- L1-L4(G/cm2): 1.498 T Score Values are as follows: ----- L1: 0.6 ----- L2: 1.2 ----- L3: 3.3 ----- L4: 5.2 ----- L1-L4: 2.6 Bone mineral density has: decreased-2.8 % since study of: 04.15.2020 Bone mineral density about the R hip (g/cm2): 1.004 Bone mineral density about the L hip (g/cm2): 0.961 T Score values are as follows: -----R Neck: -0.2 -----L Neck: -0.6 -----R Total: 1.0 -----L Total: 0.7 Bone mineral density has: decreased -0.6 % since study of: 04.15.2020 FRAX%s: The graph provided illustrates a 7.7% chance for a major osteoporotic fx and a 0.6% chance fo r the hips probability for fx in 10 years time. IMPRESSION: Normal (Values between +1 and -1 indicate normal bone mass). Consider repeating this study in 5 year s or sooner if there is some new clinical indication. NOTE: T-SCORE=SD OF THE YOUNG ADULT MEAN.
== END | disposition home or self-care (01) ==
LOC: RADBDWWP 11:08
PROVIDERS: ATTEND Internal Medicine Hematology & Oncology
DX: Z78.0 Asymptomatic menopausal state (principal)
CPT/HCPCS: 77080

== ENCOUNTER → 2023-02-02 | Outpatient (CLI) | payer MEDICARE ==
[2023-02-02 15:56] LABS: ALT 21 U/L (8-44); AST 19 U/L (13-35); Chol/HDL Ratio 3.44 Ratio; LDL Cholesterol,Calculated 123.6 mg/dL (0.0-131.0)
== END | disposition home or self-care (01) ==
LOC: LABWHC1 08:47
PROVIDERS: ATTEND Internal Medicine Cardiovascular Disease
DX: E78.2 Mixed hyperlipidemia (principal)
CPT/HCPCS: 36415; 80061; 84450; 84460

== ENCOUNTER → 2023-04-28 | Outpatient (CLI) | payer MEDICARE ==
--- NOTE | 2023-05-08 10:11 | MM ---
Reason for Exam: Additional evaluation requested from prior study. Last screening mammogram was performed 12 month(s) ago. Patient History: Menarche at age 12. First Full-Term at age 19. Postmenopausal. Patient has history of breast feeding. Breast cancer, left, age 68. Previous chest radiation therapy at age 68. Previous chemotherapy at age 68. Hormonal Contraceptives for 6 years from age 21 until age 27. 1993, Bilateral Reduction. Benign Core Biopsy on the left side. 05/23/2019, Lumpectomy on the Left side. 05/23/2019, Malignant Core Biopsy on the left side. 05/23/2019, Malignant Core Biopsy on the left side. 04/08/2019, Malignant Core Biopsy on the left side. 02/27/2019, Malignant Core Biopsy on the left side. Maternal aunt had breast cancer, age 65. Maternal aunt had breast cancer, age 67. Mother had breast cancer, age 60. Mother had breast cancer, age 80. Sister had breast cancer, age 81. Tissue Density: There are scattered fibroglandular densities. Findings: Analyzed By CAD. Postoperative distortion left breast is unchanged. Benign punctate calcifications seen bilaterally. No right breast mass or distortion seen. Overall Assessment: Benign, BI-RAD 2 Management: Screening Mammogram of both breasts in 1 year. Results were given to the patient verbally at the time of exam. Patient should continue monthly self-breast exams. A clinical breast exam by your physician is recommended on an annual basis. This exam should not preclude additional follow-up of suspicious palpable abnormalities. Note on Karrie scores and lifetime risk: 1. A Karrie score greater than 3% is considered moderate risk. If this is the case, consider specialist referral to assess eligibility for a risk reducing agent. 2. If overall lifetime risk for the development of breast cancer is 20% or higher, the patient may qualify for future screening with alternating mammogram and breast MRI. Electronically signed and approved by: Jayce Palafox M.D. Radiologis
== END | disposition home or self-care (01) ==
LOC: RADMAMWWP 13:05
PROVIDERS: ATTEND Radiology Radiation Oncology
DX: Z08 Encounter for follow-up examination after completed treatment for malignant neoplasm (principal); C77.9 Secondary and unspecified malignant neoplasm of lymph node, unspecified; C50.312 Malignant neoplasm of lower-inner quadrant of left female breast; Z78.0 Asymptomatic menopausal state; Z80.3 Family history of malignant neoplasm of breast; Z79.811 Long term (current) use of aromatase inhibitors; Z85.3 Personal history of malignant neoplasm of breast; Z92.21 Personal history of antineoplastic chemotherapy
CPT/HCPCS: 77066; G0279; 77062

== ENCOUNTER → 2023-11-09 | Outpatient (CLI) | payer MEDICARE ==
[2023-11-09 14:08] LABS: African American GFR (CKD) >90 (>60 ml/min/1.73 sqM); Blood Urea Nitrogen 15 mg/dL (7-17); Non-African American GFR(CKD) 79 (>60 ml/min/1.73 sqM)
--- NOTE | 2023-11-09 16:12 | CT ---
EXAMINATION TYPE: CT ChestAbdPelvis w con CT DLP: 1806.5 mGycm, Automated exposure control for dose reduction was used. DATE OF EXAM: 11/09/2023 3:38 PM COMPARISON: 06/10/2019 CLINICAL INDICATION:Female, 73 years old with history of C50.312 breast ca; [facility], Breast Ca. Technique: CT ChestAbdPelvis w con; Multiple axial images were obtained. Two-dimensional coronal and sagittal reconstructions were obtained. Contrast used:100 mL of Isovue 300 with IV Contrast, Oral contrast used: with Oral Contrast Findings: CHEST: LUNGS/ PLEURA: No new or enlarging pulmonary nodules. No focal consolidation, pneumothorax or pleural effusion. AIRWAY: Patent and unremarkable. HEART: Size within normal limits. MEDIASTINUM: No gross evidence of adenopathy. VASCULATURE: No aortic aneurysm. MUSCULOSKELETAL: Moderate disc degeneration changes are present throughout the thoracolumbar spine. SOFT TISSUES/LYMPH NODES: Right thyroid nodules are increased in size from prior now measuring up to 23 mm. Postprocedural changes to left breast with surgical clips present. No lymphadenopathy visualiz ed in the axilla. LOWER NECK: No significant findings. ABDOMEN: ABDOMEN LIVER: Unremarkable GALLBLADDER AND BILE DUCTS: Mid gallbladder demonstrates waist with suspected adenomyomatosis changes . PANCREAS: Unremarkable. SPLEEN: Unremarkable. ADRENAL GLANDS: Unremarkable. KIDNEYS AND URETERS: No evidence of hydronephrosis or renal calculus. The ureters are unremarkable. R ight renal cyst measuring up to 7.7 cm. Additional right renal simple appearing cyst in left simple a ppearing cyst. PELVIS BLADDER: Unremarkable REPRODUCTIVE: Unremarkable. ABDOMEN & PELVIS STOMACH AND BOWEL: Small hiatal hernia. No evidence of bowel obstruction. Scattered colonic diverticu la. PERITONEUM: No evidence of pneumoperitoneum or free fluid. VASCULATURE: No evidence of aortic aneurysm. MUSCULOSKELETAL: No acute osseous abnormalities. Moderate disc degeneration changes are present throu ghout the thoracolumbar spine. LYMPH NODES: No gross evidence for lymphadenopathy. SOFT TISSUE/ABDOMINAL WALL: Fat-containing umbilical hernia. IMPRESSION: 1. Postsurgical changes to the left breast at lumpectomy clips. No evidence for mass. Gallbladder ad enomyomatosis with suspected gallstones versus wall calcifications. Consider right upper quadrant ult rasound for further evaluation. 2. Increasing right thyroid nodules consider follow-up with thyroid ultrasound if not recently perfo rmed. 3. Scattered colonic diverticula.
--- NOTE | 2023-11-10 10:40 | MM ---
Reason for Exam: Clinical finding. Last screening mammogram was performed 7 month(s) ago. Patient History: Menarche at age 12. First Full-Term at age 19. Postmenopausal. Patient has history of breast feeding. Breast cancer, left, age 68. Previous chest radiation therapy at age 68. Previous chemotherapy at age 68. Hormonal Contraceptives for 6 years from age 21 until age 27. 1992, Bilateral Reduction. Benign Core Biopsy on the left side. 05/23/2019, Lumpectomy on the Left side. 05/23/2019, Malignant Core Biopsy on the left side. 05/23/2019, Malignant Core Biopsy on the left side. 04/08/2019, Malignant Core Biopsy on the left side. 02/27/2019, Malignant Core Biopsy on the left side. Maternal aunt had breast cancer, age 65. Maternal aunt had breast cancer, age 67. Mother had breast cancer, age 60. Mother had breast cancer, age 80. Sister had breast cancer, age 81. Prior Study Comparison: 08/16/1993 Screening Mammogram, Unknown. 11/05/1995 Screening Mammogram, Unknown. 12/12/1996 Screening Mammogram, Unknown. 05/20/2015 Bilateral Screening Mammogram, [facility]. 10/04/2016 Bilateral Screening Mammogram, [facility]. 01/24/2018 Bilateral Screening Mammogram, [facility]. 01/26/2018 Right Diagnostic Mammogram, [facility]. 02/01/2019 Bilateral Screening Mammogram, [facility]. 02/13/2019 Left Diagnostic Ultrasound, [facility]. 02/27/2019 Left Diagnostic Mammogram, [facility]. 03/13/2019 Bilateral Diagnostic Breast MRI, [facility]. 04/08/2019 Left Diagnostic Mammogram, [facility]. 04/24/2020 Bilateral Diagnostic Mammogram, [facility]. 04/26/2021 Bilateral Diagnostic Mammogram, [facility]. 04/27/2022 Bilateral MG 3D diag mammo w/cad KWASI, [facility]. 04/28/2023 Bilateral MG 3D diag mammo w/cad KWASI, [facility]. Tissue Density: The breast tissue is heterogeneously dense. This may lower the sensitivity of mammography. Findings: Analyzed By CAD. There is mild left-sided nipple retraction and. Areolar skin thickening. Surgical and clinical correlation advised. Postoperative changes left breast of prior lumpectomy unchanged. Chronic nodularity is stable. Benign calcifications persists. Overall Assessment: Suspicious, BI-RAD 4 Management: Surgical Consultation of the left breast. . Results were given to the patient verbally at the time of exam. Patient should continue monthly self-breast exams. A clinical breast exam by your physician is recommended on an annual basis. This exam should not preclude additional follow-up of suspicious palpable abnormalities. Note on Karrie scores and lifetime risk: 1. A Karrie score greater than 3% is considered moderate risk. If this is the case, consider specialist referral to assess eligibility for a risk reducing agent. 2. If overall lifetime risk for the development of breast cancer is 20% or higher, the patient may qualify for future screening with alternating mammogram and breast MRI. Electronically signed and approved by: Jayce Palafox M.D. Radiologis
== END | disposition home or self-care (01) ==
LOC: RADMAMWWP 12:53
PROVIDERS: ATTEND Internal Medicine Hematology & Oncology
DX: C50.312 Malignant neoplasm of lower-inner quadrant of left female breast (principal); K57.30 Diverticulosis of large intestine without perforation or abscess without bleeding; E78.5 Hyperlipidemia, unspecified; I10 Essential (primary) hypertension; Z78.0 Asymptomatic menopausal state; Z71.3 Dietary counseling and surveillance
CPT/HCPCS: 82565; 84520; 77066; 71260; 74177; 36415; G0279; Q9967; 77062

== ENCOUNTER → 2023-11-10 | Outpatient (CLI) | payer MEDICARE ==
--- NOTE | 2023-11-14 10:19 | BMR ---
EXAM DATE: 11/13/2023 EXAM DESCRIPTION: MRI-Breast Bilat (W/WO Contrast) INDICATION: >20% lifetime risk for malignancy presenting for high risk surveillance COMPARISON: Comparison is made with relevant prior imaging in PACS. CONTRAST: 9 cc of Gadavist TECHNIQUE: Multiplanar MRI imaging of both breasts was performed with a dedicated breast coil, before and after intravenous administration of gadolinium contrast, using the standard breast mass protocol. Computer-aided detection was used to aid in interpretation. Study was performed at [facility] with Radiologic interpretation by [facility]. FINDINGS: General breast composition: There are scattered areas of fibroglandular tissue Background parenchymal enhancement: Mild FINDINGS: Right Breast: Review of the dynamic contrast-enhanced series shows no rapidly enhancing masses, suspicious enhancement patterns or other abnormalities. The T2 weighted series shows no abnormality. Left Breast: Review of the dynamic contrast-enhanced series shows post treatment changes. There is irregular focal non mass enhancement in the retroareolar breast measuring 2.0 x 1.6 x 1.9 cm extending to with involvement of the nipple and nipple tract retraction. Miscellaneous findings:Small hiatal hernia. Cholelithiasis IMPRESSION: Right Breast: BI-RADS Category1- Negative No MRI evidence of malignancy. Recommendation: MRI screening in 1 year Left Breast: BI-RADS Category 1- Negative Posttreatment changes are present. 2 cm focal non mass enhancement in the retroareolar breast with nipple retraction for which targeted ultrasound and biopsy is recommended. Recommendation: Targeted left breast ultrasound and biopsy. OVERALL ASSESSMENT -- BI-RADS 4 MTDD
== END | disposition home or self-care (01) ==
LOC: RADMRIMAIN 20:45
PROVIDERS: ATTEND Internal Medicine Hematology & Oncology
DX: C50.312 Malignant neoplasm of lower-inner quadrant of left female breast (principal)
CPT/HCPCS: C8908; A9585; 77049

== ENCOUNTER → 2023-12-25 | Outpatient (CLI) | payer MEDICARE ==
--- NOTE | 2023-12-25 11:50 | MR ---
EXAMINATION TYPE: MR brain wo/w con DATE OF EXAM: 12/25/2023 COMPARISON: 11/20/2022 HISTORY: Malignant neoplasm of brain TECHNIQUE: Multiplanar, multisequence images of the brain and brainstem is performed without and with IV contras t, utilizing 8.5 mL intravenous Gadavist . FINDINGS: Diffusion weighted images demonstrate no evidence of a recent infarct or other diffusion ab normality. Moderate degenerative change with diffuse focal areas of abnormal signal within the bilateral white m atter most remote microvascular ischemia. Focal area of abnormal signal involving the basal ganglia m ay represent prominent Virchow-Nitesh spaces versus tiny remote infarct. There is no enhancing mass. Faint linear enhancement in the kaet is likely vascular disease. . Nodes in the suspicious intracranial enhancing lesions. Midline structures demonstrate normal morphology. The craniocervical junction appears within normal limits. Post contrast images demonstrate no abnormal enhancement. The dural venous sinuses appear pa tent. Changes of mild chronic sinusitis. Orbits are symmetric. IMPRESSION: 1. No definite enhancing mass suspicious for metastatic disease. Tiny linear area of enhancement in t he kate most likely is vascular. This could be followed with subsequent MRI of the brain. 2. Degenerative and remote nonspecific microvascular white matter disease.
== END | disposition home or self-care (01) ==
LOC: RADMRIMAIN 10:25
PROVIDERS: ATTEND Psychiatry & Neurology Neurology
DX: G31.9 Degenerative disease of nervous system, unspecified (principal); G93.89 Other specified disorders of brain; C71.9 Malignant neoplasm of brain, unspecified; F03.90 Unspecified dementia, unspecified severity, without behavioral disturbance, psychotic disturbance, mood disturbance, and anxiety; G44.229 Chronic tension-type headache, not intractable
CPT/HCPCS: 70553; A9585

== ENCOUNTER → 2024-04-15 | Outpatient (CLI) | payer MEDICARE | END | disposition home or self-care (01) | LOC: LABWHC1 13:43 | PROVIDERS: ATTEND Psychiatry & Neurology Neurology | DX: F03.90 Unspecified dementia, unspecified severity, without behavioral disturbance, psychotic disturbance, mood disturbance, and anxiety (principal) | CPT/HCPCS: 36415 ==

== ENCOUNTER → 2024-06-07 | Outpatient (CLI) | payer MEDICARE ==
--- NOTE | 2024-06-07 19:21 | BD ---
EXAMINATION TYPE: Axial Bone Density DATE OF EXAM: 06/07/2024 CLINICAL HISTORY: 73 years old Female. ICD-10 CODE: M81.0 AGE-RELATED OSTEOPOROSIS W/O CURRENT PATHO LO Height: 64in Weight: 189lb FRAX RISK QUESTIONS: Family History (Parent hip fracture): yes Secondary Osteoporosis: RISK FACTORS HISTORY OF: MEDICATIONS: EXAM MEASUREMENTS: Bone mineral densitometry was performed using the BTC Trip System. Bone mineral density as measured about the Lumbar spine is: ----- L1-L4(G/cm2): 1.438 T Score Values are as follows: ----- L1: 1.4 ----- L2: 1.3 ----- L3: 2.4 ----- L4: 3.2 ----- L1-L4: 2.2 Z Score Values are as follows: ----- L1: 2.4 ----- L2: 2.3 ----- L3: 3.4 ----- L4: 4.3 ----- L1-L4: 3.2 Bone mineral density has: Decreased -4.0% since study of: 05-27-22 Bone mineral density about the R hip (g/cm2): 1.050 Bone mineral density about the L hip (g/cm2): 1.038 T Score values are as follows: -----R Neck: -0.6 -----L Neck: -1.0 -----R Total: 0.3 -----L Total: 0.2 Z Score values are as follows: -----R Neck: 0.7 -----L Neck: 0.3 -----R Total: 1.4 -----L Total: 1.4 Bone mineral density has: Decreased -6.2% since study of: 05-27-22 FRAX%s: The graph provided illustrates a 9.0% chance for a major osteoporotic fx and a 1.1% chance fo r the hips probability for fx in 10 years time. IMPRESSION: Normal (Values between +1 and -1 indicate normal bone mass). Consider repeating this study in 5 year s or sooner if there is some new clinical indication. NOTE: T-SCORE=SD OF THE YOUNG ADULT MEAN.
== END | disposition home or self-care (01) ==
LOC: RADBDWWP 12:46
PROVIDERS: ATTEND Internal Medicine Hematology & Oncology
DX: M81.0 Age-related osteoporosis without current pathological fracture
CPT/HCPCS: 77080

== ENCOUNTER → 2024-10-10 | Outpatient (CLI) | payer MEDICARE ==
--- NOTE | 2024-10-10 13:55 | XR ---
Chest, 2 view. HISTORY: Wheezing. COMPARISON: 07/30/2018 TECHNIQUE: PA and lateral views the chest are obtained. FINDINGS: The lungs are clear and there is no consolidative or interstitial opacity. There is no pleural effusion or pneumothorax. The heart, pulmonary vasculature, mediastinum and neli appear normal. The osseous structures are intact. IMPRESSION: No significant abnormality seen. No acute cardiopulmonary disease. [facility], , 10/10/2024 1:53 PM
== END | disposition home or self-care (01) ==
LOC: RADXRMAIN 13:11
PROVIDERS: ATTEND Family Medicine
DX: R06.2 Wheezing (principal); R06.02 Shortness of breath
CPT/HCPCS: 71046

== ENCOUNTER → 2024-12-16 | Outpatient (CLI) | payer MEDICARE ==
[2024-12-16 09:15] LABS: African American GFR (CKD) >90 (>60 ml/min/1.73 sqM); Blood Urea Nitrogen 20 mg/dL (7-17); Non-African American GFR(CKD) 79 (>60 ml/min/1.73 sqM)
--- NOTE | 2024-12-16 12:35 | CT ---
EXAMINATION TYPE: CT ChestAbdPelvis w con DATE OF EXAM: 12/16/2024 10:41 AM COMPARISON: 11/09/2023 CLINICAL INDICATION: Female, 74 years old with history of C50.012 BREAST CANCER, TECHNIQUE: CT imaging performed with sagittal coronal reformats. CT scan of the chest, abdomen and pe lvis is performed with Oral Contrast and with IV Contrast, patient injected with 100 mL of Isovue [address] DLP: 1642 mGycm, Automated exposure control for dose reduction was used. FINDINGS: CT Chest: LUNGS: The lungs are clear and free of infiltrate or atelectasis. No pulmonary nodule or mass is det ected. Left upper lobe subpleural fibrosis likely related related to prior radiation therapy. No pleu ral effusion. MEDIASTINUM: Thoracic aorta is of normal caliber. The heart is not enlarged. No evidence for media stinal mass or adenopathy. HEART: Size within normal limits. No significant coronary artery calcifications. HILAR STRUCTURES: No evidence for mass. No hilar adenopathy is appreciated. OTHER: Mastectomy changes seen. CONTRAST CT ABDOMEN AND PELVIS FINDINGS: LIVER/GB: No calcified gallstones. No space occupying hepatic lesion. Biliary tree is of normal ca liber. PANCREAS: No inflammation. No distinct mass. SPLEEN: No splenic enlargement. No lesion seen. ADRENALS: No nodule. No thickening. KIDNEYS/BLADDER: No hydronephrosis. No nephrolithiasis. Renal cystic changes bilaterally. Large low er pole cyst right kidney measuring 8.6 x 7.1 cm. BOWEL: Normal appendix. Normal bowel caliber. No inflammation. GENITAL ORGANS: No gross abnormality. LYMPH NODES: No greater than 1cm abdominal or pelvic lymph nodes are appreciated. AORTA: No significant abnormality. OSSEOUS STRUCTURES: No significant abnormality is seen. OTHER: No significant additional abnormality is seen. IMPRESSION: 1. No CT evidence to suggest metastatic disease at this time. Bilateral mastectomy change with post r adiation therapy interstitial changes left upper lobe anteriorly. [facility], , 12/16/2024 12:33 PM
--- NOTE | 2024-12-16 14:08 | NM ---
EXAMINATION TYPE: NM bone scan whole body DATE OF EXAM: 12/16/2024 2:01 PM CLINICAL INDICATION:Female, 74 years old with history of C50.012 BREAST CANCER; COMPARISON: 06/10/2019 TECHNIQUE: Intravenous administration 23.6 mCi Tc 99m MDP followed by multiple scintigraphic images o f the appendicular and axial skeleton. Images acquired 4 hours post injection. FINDINGS: No abnormal uptake is identified within the appendicular or axial skeleton to suggest metastatic dise ase. There is increased uptake within the bilateral shoulder, sternoclavicular, and sacroiliac joints con sistent with degenerative changes. No other photopenic areas or areas of increased activity are ident ified. Physiologic radiotracer activity is demonstrated in the kidneys and bladder. IMPRESSION: 1. Nothing to suggest metastatic disease. [facility], , 12/16/2024 2:05 PM
== END | disposition home or self-care (01) ==
LOC: RADNMMAIN 08:36
PROVIDERS: ATTEND Internal Medicine Hematology & Oncology
DX: C50.012 Malignant neoplasm of nipple and areola, left female breast (principal); C50.312 Malignant neoplasm of lower-inner quadrant of left female breast; I10 Essential (primary) hypertension; E78.5 Hyperlipidemia, unspecified; Z92.3 Personal history of irradiation; Z71.3 Dietary counseling and surveillance
CPT/HCPCS: 82565; 84520; 71260; 74177; 36415; 78306; A9503; Q9967

== ENCOUNTER → 2025-01-15 | Outpatient (CLI) | payer MEDICARE ==
--- NOTE | 2025-01-16 08:44 | MR ---
EXAMINATION TYPE: MR brain wo/w con DATE OF EXAM: 01/15/2025 2:19 PM COMPARISON: 12/25/2023 CLINICAL INDICATION: Female, 74 years old with history of G30.9 ALZHEIMER'S DISEASE, Alzheimer's, hx breast cancer. TECHNIQUE: Multi planar multi sequence imaging of the brain. CONTRAST: Patient received 9 mL intravenous Gadobutrol gadolinium contrast. Pre and post contrast en hanced images are obtained. FINDINGS: The ventricles, basal cisterns and sulci overlying the cerebral convexities are mildly enlarged. There is evidence of mild to moderate periventricular white matter ischemic demyelination. Remote deep white matter insults are also noted. No acute edema is seen on diffusion weighted imaging. There is no evidence for midline shift or mass effect. Acute intracranial hemorrhage or extra-axial collection is not evident. No enhancing lesions are seen. The paranasal sinuses and mastoid air cells are well-aerated. IMPRESSION: Age-related atrophic and chronic small vessel ischemic change. No acute intracranial process at this time. No enhancing lesions are seen. [facility], , 01/16/2025 8:42 AM
== END | disposition home or self-care (01) ==
LOC: RADMRIMAIN 13:28
PROVIDERS: ATTEND Psychiatry & Neurology Neurology
DX: G30.9 Alzheimer's disease, unspecified (principal); I67.82 Cerebral ischemia
CPT/HCPCS: 70553; A9585

== ENCOUNTER → 2025-04-10 | Outpatient (CLI) | payer MEDICARE ==
--- NOTE | 2025-04-10 16:36 | MR ---
INDICATION: Patient age:Female; 74 years old; Reason for study: G30.9 ALZHEIMER'S DISEASE, UNSPECIFIED; [facility]. COMPARISON: MRI brain 01/15/2025, 12/25/2023, 11/10/2022. TECHNIQUE: Multi planar, multi sequence imaging was performed through the brain without the administr ation of intravenous contrast. FINDINGS: The sky-white junctions, ventricular system, basal cisterns appear unremarkable. Mild to moderate ce rebral atrophy redemonstrated. Diffusion-weighted imaging shows no evidence of restricted diffusion t o suggest acute/subacute infarct. Intracranial arterial flow voids are maintained. Midline structures show no abnormality. Similar patchy areas of high T2/FLAIR signal intensity are seen within the carmine ventricular and subcortical white matter. The susceptibility weighted images demonstrates a single fo cus of blooming artifact within the right cerebellum consistent with prior microhemorrhage.. The bone marrow signal is within normal limits. The globes are unremarkable. Mild mucosal thickenin g of the ethmoid sinuses. IMPRESSION: 1. No evidence of intracranial mass or acute/subacute infarct. 2. Similar mild nonspecific white matter changes, likely related to small vessel ischemic disease. [facility], , 04/10/2025 4:33 PM
== END | disposition home or self-care (01) ==
LOC: RADMRIMAIN 15:49
PROVIDERS: ATTEND Psychiatry & Neurology Neurology
DX: G30.9 Alzheimer's disease, unspecified (principal); R90.82 White matter disease, unspecified
CPT/HCPCS: 70551